=== PATIENT | male | born 2000 | race Two or more races ===

== ENCOUNTER 2019-06-21 02:17 | Emergency (ER) | payer MEDICAID ==
[~2019-06-21] VITALS: Ht 170.2 cm; Wt 44.5 kg
[2019-06-21 04:50] VITALS: BP 124/72
== END 2019-06-21 04:50 | disposition home or self-care (01) ==
LOC: ER 02:21
DX: I80.8 Phlebitis and thrombophlebitis of other sites (principal); M79.601 Pain in right arm
CPT/HCPCS: 73070

== ENCOUNTER 2020-05-08 20:30 | Emergency (ER) | payer MEDICAID ==
[~2020-05-08] VITALS: Ht 170.2 cm; Wt 47.6 kg
[2020-05-08 20:50] VITALS: BP 119/73
[2020-05-08 23:45] LABS: Basophils # (auto) 0 10 ^3/uL (0-0.2); Basophils % (auto) 0.2 % (0.0-2.0); Eosinophils # (auto) 0 10 ^3/uL (0-0.8); Eosinophils % (auto) 0.5 % (0.0-7.0); Hematocrit 50.3 % (41.0-53.0); Hemoglobin 16.6 g/dL (13.5-17.5); Lymphocytes # (auto) 2.6 10 ^3/uL (0.4-5.4); Lymphocytes % (auto) 24.7 % (10.0-50.0); Mean Corpuscular Hemoglobin 30.4 pg (28.0-32.0); Mean Corpuscular Volume 92.1 fL (80.0-100.0); Monocytes # (auto) 0.8 10 ^3/uL (0-1.3); Monocytes % (auto) 7.9 % (0.0-12.0); Neutrophils % (auto) 66.7 % (37.0-80.0); Nucleated Red Blood Cells % 0.1 %; Platelet Count (auto) 282 10^3/uL (140-450); Red Blood Cells 5.46 10^6/uL (4.5-5.90); Red Cell Distribution Width 13.2 % (11.8-14.3); White Blood Cell 10.5 10^3/uL (4.4-10.8)
[2020-05-09 00:03] LABS: Albumin 4.2 g/dL (3.4-5.0); BUN/Creatinine Ratio 13.8; Calcium 8.6 mg/dL (8.5-10.1); Potassium 3.6 mmol/L (3.5-5.1)
[2020-05-09 00:05] LABS: Bilirubin, Total 0.5 mg/dL (0.2-1.0); Total Protein 7.7 g/dL (6.4-8.2)
[2020-05-09 00:06] LABS: Urine Bacteria NONE SEEN /hpf (None Seen); Urine Blood Negative /uL (Negative); Urine Mucus FEW (None Seen); Urine WBC <1 /hpf (0 - 3)
== END 2020-05-09 02:20 | disposition home or self-care (01) ==
LOC: ER 20:31
DX: R59.0 Localized enlarged lymph nodes (principal)
CPT/HCPCS: 36415; 70486; 72125; 80053; 81001; 84443; 85025

== ENCOUNTER 2020-12-13 00:54 | Emergency (ER) | payer MEDICAID ==
[~2020-12-13] VITALS: Ht 170.2 cm; Wt 52.6 kg
[2020-12-13 02:18] VITALS: BP 100/69
== END 2020-12-13 02:25 | disposition home or self-care (01) ==
LOC: ER 00:54
DX: B35.0 Tinea barbae and tinea capitis (principal)

== ENCOUNTER 2024-04-26 21:20 | Emergency (ER) | payer SELFPAY ==
[~2024-04-26] VITALS: Ht 167.6 cm; Wt 53.0 kg
[2024-04-27 00:04] VITALS: BP 113/62; PULSE 73; RESP 18; TEMP 98.1; O2SAT 96
== END 2024-04-27 00:19 | disposition home or self-care (01) ==
LOC: ER 21:20
DX: S93.402A Sprain of unspecified ligament of left ankle, initial encounter (principal); F12.10 Cannabis abuse, uncomplicated; W01.0XXA Fall on same level from slipping, tripping and stumbling without subsequent striking against object, initial encounter; Y93.89 Activity, other specified; Y92.89 Other specified places as the place of occurrence of the external cause; Y99.8 Other external cause status
CPT/HCPCS: 29515; 73630